=== PATIENT | male | born 1985 | race Caucasian/White ===

== ENCOUNTER 2019-12-06 07:03 | Emergency (ER) | payer SELFPAY ==
[2019-12-06 07:12] VITALS: BP 170/96; PULSE 86; RESP 16; TEMP 36.6; O2SAT 97; BMI 43.3
--- NOTE | 2019-12-06 07:28 | ED_ITS ---
HPI - General Adult General: Chief complaint: General Medical Stated complaint: MUCUS IN THROAT Time Seen by Provider: 12/06/19 07:06 History of Present Illness: HPI narrative: Patient comes in here today saying that he is having a hard time clearing his throat from the mucus that comes up that he coughs. Has complained about almost like bronchospasms. Has had a lot of sinus drainage. This is been going on 3 to 4 weeks. Has been to [facility] urgent care on the weekends for 3 straight weekends. Has been treated with antibiotics inhaler steroids now Tessalon Perles. Patient denies any fever chest pain shortness of breath headaches. MD complaint: drainage Onset (ago): week(s) Relieving factors: other (Tessalon Perles have helped some with the cough) Associated symptoms: Reports cough; Deny chest pain, dyspnea, fevers/chills, headache(s), rash, short of breath or vomiting Treatments prior to arrival: other Review of Systems Const: Denies: fever, chills or body aches Eyes: Denies: change in vision or blurry vision ENMT: Reports: nasal discharge and facial/sinus pain; Denies: throat pain or nasal congestion Card: Denies: chest pain Resp: Reports: productive cough and chest congestion; Denies: shortness of breath, non-productive cough, wheezing or coughing up blood GI: Denies: vomiting : Denies: difficulty urinating Musc: Denies: extremity pain Skin/Breast: Denies: rash Neuro: Denies: headache Psych: Denies: anxiety or depression Leoncio/Lymph: Denies: easy bruising PFSH ED PFSH: Statuses (acute, chronic, etc) shown below reflect problem list status as previously entered and may not be historically accurate Social History Smoking and tobacco status: former smoker Physical Exam Const: COMMON NORMALS: no apparent distress, average body habitus and oriented x3 HENMT: COMMON NORMALS: normocephalic HEAD & SCALP: normal to inspection and normocephalic FACE & SINUS: normal facial exam Eye: COMMON NORMALS: conjunctivae normal GENERAL EYE: normal appearance of both eyes CONJUNCTIVA: Yes conjunctivae normal Neck/C-Spine: COMMON NORMALS: no JVD Chest: COMMONS NORMALS: inspection of chest normal Resp: COMMON NORMALS: normal respiratory effort and clear to auscultation bilaterally AUSCULTATION: clear to auscultation bilaterally Cardio: COMMON NORMALS: no JVD, regular rate and regular rhythm RATE: regular rate RHYTHM: regular rhythm GI: COMMON NORMALS: normal to inspection, nondistended, normoactive bowel sounds Extremity: COMMON NORMALS: normal to inspection and full ROM Neuro: COMMON NORMALS: oriented x3 Course Vital Signs: Vital signs: Vital Signs Temperature 98 F 12/06/19 07:12 Pulse Rate 86 12/06/19 07:12 Respiratory Rate 16 12/06/19 07:12 Blood Pressure 170/96 12/06/19 07:12 Pulse Oximetry 97 12/06/19 07:12 Coding Level of Care Code ED Child Care Associate for Jai Dempsey
--- NOTE | 2019-12-06 07:28 | XR_ITS ---
WS: [id number] CHEST XRAY TECHNIQUE: Portable chest. CLINICAL INFORMATION: admission COMPARISON: FINDINGS: Heart: Normal cardiac silhouette. Lungs: Lungs are clear. No consolidation or pleural effusion. Bones: Normal visualized bony structures. XR/XR chest 1V portable [id number] IMPRESSION: Normal chest
--- NOTE | 2019-12-06 07:43 | PC.NURSE ---
portable xray at bedside
== END 2019-12-06 07:46 | disposition home or self-care (01) ==
PROVIDERS: Emergency Provider Nurse Practitioner Family; Family Provider Family Medicine; PCP Family Medicine
DX: R05 Cough (principal); R09.82 Postnasal drip; R51 Headache; R09.89 Other specified symptoms and signs involving the circulatory and respiratory systems; Z87.891 Personal history of nicotine dependence
CPT/HCPCS: 71045; 99281; 99282

== ENCOUNTER 2019-12-12 11:07 | Outpatient (CLI) | payer OTHER, SELFPAY ==
--- NOTE | 2019-12-12 | XR_ITS ---
WS: [id number] CHEST 2 VIEWS HISTORY: CHRONIC COUGH COMPARISON: 12/06/2019 Lungs: Very slight elevation of the RIGHT hemidiaphragm is stable. No mass or pneumonia. No pleural e ffusion or pneumothorax. Cardiac size: Normal. Mediastinum/Aorta: Normal mediastinum. Bones: Normal. XR/XR chest 2V* [id number] IMPRESSION: Stable chest with no acute cardiopulmonary disease.
== END 2019-12-12 11:08 | disposition home or self-care (01) ==
LOC: RADOUTREAD 11:15
PROVIDERS: Family Provider Family Medicine; PCP Family Medicine; Visit Provider Nurse Practitioner Family
DX: Z76.89 Persons encountering health services in other specified circumstances (principal)

== ENCOUNTER 2020-02-22 10:17 | Emergency (ER) | payer OTHER, SELFPAY ==
[2020-02-22 10:21] VITALS: BP 153/92; PULSE 86; RESP 18; O2SAT 94; BMI 40.6
--- NOTE | 2020-02-22 10:35 | XR_ITS ---
WS: [id number] CHEST XRAY TECHNIQUE: Portable chest. CLINICAL INFORMATION: cough/congestion COMPARISON: December 12, 2019 FINDINGS: Heart: Normal cardiac silhouette. Lungs: Lungs are clear. No consolidation or pleural effusion. Bones: Normal visualized bony structures. XR/XR chest 1V portable [id number] IMPRESSION: Normal chest
--- NOTE | 2020-02-22 10:35 | ECG_ITS ---
Measurements Intervals [place] Rate: 77 P: 16 SC: 126 QRS: 42 QRSD: 103 T: 55 QT: 351 QTc: 397 SINUS RHYTHM Compared to ECG 05/12/2015 18:22:11 No significant changes Electronically Signed On 02-22-2020 18:13:59 CDT by Radha Ramsay M.D. [id number]
--- NOTE | 2020-02-22 10:36 | W.ED.CHESTPA ---
HPI - Chest Pain General: Chief Complaint: Chest Pain Stated Complaint: CHEST PAINS 3DAYS, SOB Time Seen by Provider: 02/22/20 10:19 Source: patient Mode of arrival: ambulatory Limitations: no limitations History of Present Illness: HPI narrative: Patient is a 34-year-old male who presents to ED today with complaints of intermittent right-sided chest pains x 3 days. He states pain is only present with deep inhalation. He cannot find any other worsening factors to his discomfort. Patient has been seen 2-3x since December for complaints of cough/congestion. He has been prescribed albuterol, steroids, Z-Silas, and Tessalon Perles. Patient states his cough is improving. He has not been running fevers. He currently does not complain of any shortness of breath or difficulty breathing. He has not noticed any exercise intolerance. He currently does not any cardiac history. MD complaint: chest pain Onset (ago): day(s) Timing of current episode: episodic Pain location: right chest Exacerbating factors: inspiration Associated symptoms: Reports no associated symptoms; Deny dyspnea, fever(s), palpitations or syncope Review of Systems Const: Denies: fever, chills, body aches, fatigue or malaise Eyes: Denies: change in vision, blurry vision or photophobia ENMT: Denies: throat pain, enlarged tonsils or painful swallowing Card: Reports: chest pain; Denies: palpitations, irregular heart rhythm, edema, swelling of feet/ankles, lightheadedness, syncope, pre-syncope, shortness of breath on exertion, shortness of breath when lying down or leg pain with exertion Resp: Denies: shortness of breath, productive cough, non-productive cough, pain on inspiration, coughing up blood or chest congestion Musc: Denies: neck pain or back pain Skin/Breast: Denies: rash Neuro: Denies: headache, numbness in extremities, weakness in extremities or changes in sensation PFSH ED PFSH: Social History Smoking and tobacco status: former smoker Physical Exam Const: COMMON NORMALS: no apparent distress, oriented x3, no limitations and alert NUTRITIONAL APPEARANCE: obese HENMT: COMMON NORMALS: normocephalic, head/scalp atraumatic, hearing grossly normal bilaterally, external ears normal, EAC's normal, TM's normal bilaterally, external nose normal, nasal mucous membranes and turbinates normal, moist oral mucous membranes and oropharynx normal HEAD & SCALP: normal to inspection, normocephalic and atraumatic FACE & SINUS: normal facial exam and sinuses nontender NOSE: external nose normal and nasal mucous membranes and turbinates normal EXTERNAL EAR: Yes external ears normal EXTERNAL AUDITORY CANAL: EAC's normal TYMPANIC MEMBRANE: TM's normal bilaterally THROAT: posterior oropharynx normal, tonsils normal and uvula midline Eye: COMMON NORMALS: PERRL, EOMs intact bilaterally and conjunctivae normal CONJUNCTIVA: Yes conjunctivae normal PUPIL: Yes PERRL Neck/C-Spine: COMMON NORMALS: no lymphadenopathy Chest: COMMONS NORMALS: inspection of chest normal and palpation of chest normal Resp: COMMON NORMALS: normal respiratory effort and clear to auscultation bilaterally AUSCULTATION: clear to auscultation bilaterally Cardio: COMMON NORMALS: regular rate and regular rhythm RATE: regular rate RHYTHM: regular rhythm Neuro: COMMON NORMALS: oriented x3 SENSORIUM/ORIENTATION: Yes alert Skin: COMMON NORMALS: no rashes or lesions noted GENERAL SKIN EXAM: no rashes or lesions noted Course Vital Signs: Vital signs: Vital Signs Temperature 98.3 F 02/22/20 10:37 Pulse Rate 82 02/22/20 10:37 Respiratory Rate 18 02/22/20 10:37 Blood Pressure 129/79 02/22/20 10:37 Pulse Oximetry 97 02/22/20 10:37 MDM - Chest Pain MDM Narrative: Medical decision making narrative: Patient's work-up here looks good. He has a normal CXR. EKG shows normal sinus rhythm. Blood work including troponin is negative. Recommend he follow-up with PCP in 3 to 5 days for continued pain. Return to ED precautions given. Lab Data: Labs: Lab Results 02/22/20 02/22/20 02/22/20 Range/Units 10:35 10:35 10:35 WBC 8.7 (4.0-10.0) 10^3/ uL RBC 5.43 H (4.1-5.3) 10^6/u L Hgb 15.6 (11.7-16.6) g/dL Hct 46.2 (42.0-52.0) % MCV 85.1 (80-94) fL MCH 28.7 (28.0-34.0) pg MCHC 33.8 (30.0-36.0) g/dL RDW 12.9 (12.1-15.1) % Plt Count 265 (130-400) 10^3/c mm MPV 8.7 (7.4-10.4) fL Neut % (Auto) 78.4 % Lymph % (Auto) 16.4 % [place] % (Auto) 3.6 % Eos % (Auto) 0.1 % Baso % (Auto) 0.7 % Neut # (Auto) 6.8 (1.8-7.7) 10^3/u L Lymph # (Auto) 1.4 (0.8-4.8) 10^3/u L [place] # (Auto) 0.3 (0.2-0.9) 10^3/u L Eos # (Auto) 0.0 (0.0-0.8) 10^3/u L Baso # (Auto) 0.1 (0.0-0.1) 10^3/u L Nucleated RBC % (a uto) 0 % Nucleated RBCs # 0.0 /100WBC Sodium 138 (136-145) mmol/L Potassium 4.5 (3.5-5.1) mmol/L Chloride 102 (98-107) mmol/L Carbon Dioxide 23 (22-29) mmol/L Anion Gap 17.5 (5-19) BUN 10 (6-20) mg/dL Creatinine 0.8 (0.7-1.2) mg/dL GFR Calculation 109.4 (90-130) mL/min Glucose 123 H (65-115) mg/dL Calculated Osmolal ity 283 L (285-295) mOsm/k g Calcium 9.5 (8.5-10.5) mg/dL Total Bilirubin 0.4 (0.15-1.2) mg/dL AST 18 (0-40) U/L ALT 28 (0-41) U/L Alkaline Phosphata se 79 (40-130) IU/L Troponin T Gen 5 n g/L 7 (0-15) ng/mL Total Protein 7.9 (6.6-8.7) g/dL Albumin 4.5 (3.5-5.2) g/dL Globulin 3.4 (1.3-4.6) g/dL Imaging Data^: CXR: Radiologist's impression: [address] [address] XRay Report Signed Patient: Andrew Finn Unit #: [id number] : [id number] Age/Sex: 34 / M ADM Date: 02/22/20 Loc: ER Room/Bed: Attending Dr: Ordering Provider/Ordering MD: Alexus Peralta Date of Service: 02/22/20 Procedure(s): XR chest 1V portable [id number] Accession Number(s): [id number] Report Number: [id number] WS: [id number] CHEST XRAY TECHNIQUE: Portable chest. CLINICAL INFORMATION: cough/congestion COMPARISON: December 12, 2019 FINDINGS: Heart: Normal cardiac silhouette. Lungs: Lungs are clear. No consolidation or pleural effusion. Bones: Normal visualized bony structures. XR/XR chest 1V portable [id number] IMPRESSION: Normal chest Dictated By: Tal Carvalho MD Signed By: Tal Carvalho MD Signed Date/Time: 02/22/201106 DD/ 1106 Discharge Plan Discharge Patient Disposition: Home, Self-Care Clinical Impression: Right-sided chest pain Condition: Stable Prescriptions: No Action benzonatate [Tessalon Perles] 100 mg capsule 100 mg PO TID 15 Days Qty: 45 RF: 1 Mucinex D Maximum Strength 120-1,200 mg tablet extended release 12 hr 1 tab PO BID PRN (Reason: cold symptoms) Qty: 20 RF: 0 Discharge Orders: Discharge Order (Routine); Ordered 02/22/20 Ordered By: Alexus Peralta Referrals: Shay Fairchild MD [Primary Care Provider] - Discharge Diet: Usual diet Discharge Activity: Increase activity as tolerated Activity Restrictions/Additional Instructions: You may follow up with primary care in 3-5 days for persistent pain/symptoms. Can return to ED for any worsening symptoms, pain, or other concerns you may have. Coding Level of Care Code ED Spinning Machine Operator for Jai Dempsey
[2020-02-22 10:37] VITALS: BP 129/79; PULSE 82; RESP 18; TEMP 36.8; O2SAT 97
[2020-02-22 10:44] LABS: Basophils # 0.1 10^3/uL (0.0-0.1); Basophils % 0.7 %; Eosinophils % 0.1 %; Hematocrit 46.2 % (42.0-52.0); Hemoglobin 15.6 g/dL (11.7-16.6); Lymphocytes # 1.4 10^3/uL (0.8-4.8); Lymphocytes % 16.4 %; Mean Corpuscular HGB Conc 33.8 g/dL (30.0-36.0); Mean Corpuscular Hemoglobin 28.7 pg (28.0-34.0); Mean Corpuscular Volume 85.1 fL (80-94); Mean Platelet Volume 8.7 fL (7.4-10.4); Monocytes # 0.3 10^3/uL (0.2-0.9); Monocytes % 3.6 %; Neutrophils # 6.8 10^3/uL (1.8-7.7); Neutrophils % 78.4 %; Nucleated Red Blood Cells % 0 %; Platelet Count 265 10^3/cmm (130-400); Red Blood Count 5.43 10^6/uL (4.1-5.3); Red Cell Distribution Width 12.9 % (12.1-15.1); White Blood Count 8.7 10^3/uL (4.0-10.0)
[2020-02-22 11:04] LABS: Alanine Aminotransferase 28 U/L (0-41); Albumin Level 4.5 g/dL (3.5-5.2); Alkaline Phosphatase 79 IU/L (40-130); Anion Gap 17.5 (5-19); Aspartate Amino Transferase 18 U/L (0-40); Blood Urea Nitrogen 10 mg/dL (6-20); Calcium 9.5 mg/dL (8.5-10.5); Carbon Dioxide 23 mmol/L (22-29); Chloride 102 mmol/L (98-107); Globulin 3.4 g/dL (1.3-4.6); Glomerular Filtration Rate 109.4 mL/min (90-130); Glucose 123 mg/dL (65-115); Osmolality Calculated 283 mOsm/kg (285-295); Potassium 4.5 mmol/L (3.5-5.1); Sodium 138 mmol/L (136-145); Total Bilirubin 0.4 mg/dL (0.15-1.2); Total Protein 7.9 g/dL (6.6-8.7)
[2020-02-22 11:05] LABS: Troponin T (5th) Once 7 ng/mL (0-15)
[2020-02-22 11:53] VITALS: BP 122/62; PULSE 78; RESP 18
== END 2020-02-22 11:59 | disposition home or self-care (01) ==
PROVIDERS: Emergency Provider Physician Assistant; Family Provider Family Medicine; PCP Family Medicine
DX: R07.89 Other chest pain (principal); Z87.891 Personal history of nicotine dependence
CPT/HCPCS: 12345; 71045; 80053; 84484; 85025; 93005; 99282; 99283

== ENCOUNTER → 2020-07-23 10:31 | Outpatient (BNVA) | payer OTHER, SELFPAY | PROVIDERS: Family Provider Family Medicine; PCP Family Medicine; Visit Provider Nurse Practitioner Family | DX: Z20.828 Contact with and (suspected) exposure to other viral communicable diseases (principal); R05 Cough | CPT/HCPCS: 87071; 87635; 87880 ==

== ENCOUNTER → 2021-10-15 11:04 | Outpatient (BNVA) | payer SELFPAY | PROVIDERS: Family Provider Family Medicine; PCP Family Medicine; Visit Provider Family Medicine | DX: R79.89 Other specified abnormal findings of blood chemistry (principal) | CPT/HCPCS: 84403 ==

== ENCOUNTER 2023-05-26 09:52 | Emergency (ER) | payer OTHER, SELFPAY ==
[2023-05-26 10:06] VITALS: BMI 29.7
[2023-05-26 10:08] VITALS: BP 102/70; PULSE 72; RESP 16; TEMP 36.7; O2SAT 98
--- NOTE | 2023-05-26 12:37 | ED_ITS ---
HPI - Back Pain/Injury General: Chief Complaint: Back Pain/Injury Stated Complaint: Lower Back Pain Time Seen by Provider: 05/26/23 12:20 History of Present Illness: Patient is a 37-year-old male comes to the ED with low back pain. Symptoms started yesterday. Patient says he bent over to grab something and felt a sharp pain in his lower back that radiated up to the middle of his back. He now has 9 out of 10 pain in his lumbar spine. He has some numbness/tingling sensation in his lower extremities bilaterally. Denies any bladder or bowel incontinence, pelvic anesthesia or any difficulty walking. Associated symptoms: Deny abdominal pain, chills, dysuria, fatigue, fever(s), hematuria, nausea or vomiting Review of Systems Const: Denies: fever(s), chills or fatigue Eyes: Denies: change in vision or eye discomfort ENMT: Denies: throat pain, odynophagia, nasal discharge or nasal congestion Card: Denies: chest pain, palpitations, edema, swelling of feet/ankles, dyspnea on exertion or orthopnea Resp: Denies: dyspnea, productive cough or non-productive cough GI: Denies: abdominal pain, nausea, vomiting, diarrhea, constipation or hematochezia : Denies: flank pain, difficulty urinating, dysuria or hematuria Musc: Reports: back pain; Denies: neck pain or extremity swelling Skin/Breast: Denies: rash or new lesions Neuro: Denies: headache(s), numbness in extremities or weakness in extremities PFSH ED PFSH: Medical History Generalized anxiety disorder History of pyloric stenosis Hypertension Morbid obesity Sleep apnea Surgical History History of wisdom tooth extraction Family History Other Cancer Hypertension Stroke Denies family history of Diabetes Anesthesia complication Bleeding disorder Social History Smoking and tobacco status: former smoker Second hand smoke exposure: No Alcohol intake: never Substance/Drug Use: never Adopted: No Caregiver/support person: Yes Lives independently: Yes Household members: spouse Housing: House Marital status: service: No Current occupational status: employed Current occupational exposures/hazards: No Pets and animals: No Leisure activites: sports Sexually active: Yes Do you think of yourself as: Straight/Heterosexual Current gender identity: Male Elena/Restorationism: Spiritism Special elena needs: No Physical Exam Narrative: EXAM NARRATIVE: Appears nontoxic in no acute distress or pain. He is able to ambulate without any difficulty. Const: COMMON NORMALS: no acute distress, patient oriented x3 and alert HENMT: COMMON NORMALS: normocephalic HEAD & SCALP: normocephalic MOUTH: Normal oral and palatal mucosa present THROAT: posterior oropharynx normal and uvula midline Neck/C-Spine: COMMON NORMALS: supple GENERAL: Yes normal visual inspection Resp: COMMON NORMALS: normal respiratory effort, No retractions, No use of accessory muscles and clear to auscultation bilaterally AUSCULTATION: clear to auscultation bilaterally Cardio: COMMON NORMALS: regular rate, regular rhythm, S1 normal heart sound present, S2 normal heart sound present, No gallops present (Cardio), No clicks present (Cardio), No murmurs present (Cardio) and Peripheral pulses 2+ throughout RATE: regular rate RHYTHM: regular rhythm HEART SOUNDS: S1 normal heart sound present and S2 normal heart sound present PERIPHERAL PULSES: Peripheral pulses 2+ throughout GI: COMMON NORMALS: Normal to inspection, nondistended, normoactive bowel sounds present, Soft to palpation, non-tender and no masses PALPATION: Yes Soft to palpation : COMMON NORMALS: Yes no CVA tenderness BLADDER/KIDNEY EXAM: Yes no CVA tenderness Back/Pelvis: COMMON NORMALS: no CVA tenderness LUMBAR SPINE/LOWER BACK: Yes pain with ROM, No lumbar spinal tenderness and Yes paraspinal muscle tenderness Lumbar paraspinal muscle tenderness: bilateral Extremity: COMMON NORMALS: normal to inspection Neuro: COMMON NORMALS: patient oriented x3 SENSORIUM/ORIENTATION: Yes alert GAIT: Yes Normal gait present Skin: GENERAL SKIN EXAM: dry skin Course Vital Signs: Vital signs: Vital Signs Temperature 98.0 F 05/26/23 10:08 Pulse Rate 72 05/26/23 10:08 Respiratory Rate 16 05/26/23 10:08 Blood Pressure 102/70 05/26/23 10:08 Pulse Oximetry 98 05/26/23 10:08 Oxygen Delivery Me thod Room Air 05/26/23 10:08 MDM - Back Pain/Injury Medical Decision Making Patient is a 37-year-old male comes to the ED with low back pain. Symptoms sta rted yesterday. Patient says he bent over to grab something and felt a sharp pain in his lower back that radiated up to the middle of his back. He now has 9 out of 10 pain in his lumbar spine. He has some numbness/tingling sensation in his lower extremities bilaterally. Denies any bladder or bowel incontinence, pelvic anesthesia or any difficulty walking. Vitals are stable. Patient appears nontoxic in no acute distress or pain. He is able to ambulate without any difficulty. He has some lumbar paraspinal muscle tenderness bilaterally but no lumbar spinal tenderness. Pain with range of motion of the lumbar spine. Patient was given a dose of Toradol, Decadron and muscle relaxer here in the ED. He was stable for discharge home and diagnosed with strain of lumbar region and was discharged home with a prescription for an NSAID, muscle relaxer and steroid. Told to follow-up with PCP in the next week for reevaluation. Return to ED precautions given. Patient understood and agreed with plan. Discharge Plan Discharge Patient Disposition: Home Clinical Impression: Strain of lumbar region Condition: Stable Prescriptions: New ibuprofen 800 mg tablet 800 mg PO Q8H PRN (Reason: pain) Qty: 20 0RF methocarbamol 750 mg tablet 750 mg PO Q8H PRN (Reason: muscle spasms and pain) Qty: 20 0RF methylprednisolone 4 mg tablets,dose pack See Rx Instructions .ROUTE .COMPLEX Qty: 21 0RF Rx Instructions: orally per package directions No Action dextromethorphan-guaifenesin [Mucinex DM] 60-1,200 mg tablet extended release 12 hr 1 tab PO Q12H Qty: 10 0RF meclizine 25 mg tablet 25 mg PO BID PRN (Reason: dizziness) Qty: 60 0RF fluticasone propionate [Flonase Allergy Relief] 50 mcg/actuation spray,suspension 1 spray intranasal DAILY Qty: 16 5RF Rx Instructions: administer into each nostril alprazolam 0.5 mg tablet 0.5 mg PO BID PRN (Reason: anxiety) Qty: 30 3RF penicillin V potassium 500 mg tablet 500 mg PO TID Qty: 30 0RF Discharge Orders: Discharge ED (Routine); Ordered 05/26/23 Ordered By: Shakeel Snell Referrals: Shay Fairchild MD [Primary Care Provider] - Discharge Diet: Regular Discharge Activity: Increase activity as tolerated Patient Instructions: Low Back Strain (ED) Activity Restrictions/Additional Instructions: Follow-up with medical provider as directed in the next 5 to 7 days for reevaluation.. Take medications as prescribed. Return to the ER or your medical provider if condition worsens. Please read and understand discharge instructions. Thank you for choosing [facility] for your healthcare needs today. Please realize this is an emergency room and that we are providing you with a medical screening exam and this may not be complete and all inclusive of all the testing and or work up that you may need to determine your ailment or severity of your illness. It is very important that you follow up as instructed or that you return to the Emergency Department should you have concerns or if your condition changes or worsens in any way. Stand Alone Forms: Work/School Release Coding Level of Care Code ED Spring Crater for Jai Dempsey
[2023-05-26] MEDS: dexamethasone 10 mg/mL INJ IM (12:57)
[2023-05-26] MEDS: ketorolac 60 mg/2 mL INJ IM (12:59)
[2023-05-26] MEDS: orphenadrine 30 mg/mL Inj 2 mL 60 MG IM (13:01)
== END 2023-05-26 13:37 | disposition home or self-care (01) ==
PROVIDERS: Emergency Provider Physician Assistant; PCP Family Medicine
DX: S39.012A Strain of muscle, fascia and tendon of lower back, initial encounter (principal); I10 Essential (primary) hypertension; E66.01 Morbid (severe) obesity due to excess calories; Z68.29 Body mass index [BMI] 29.0-29.9, adult; Z79.899 Other long term (current) drug therapy; Z87.891 Personal history of nicotine dependence; X50.0XXA Overexertion from strenuous movement or load, initial encounter
CPT/HCPCS: 96372; 99284; J1100; J1885; J2360

== ENCOUNTER → 2023-07-20 08:18 | Outpatient (BNVA) | payer OTHER, SELFPAY | PROVIDERS: PCP Family Medicine; Visit Provider Nurse Practitioner Family | DX: R51.9 Headache, unspecified (principal); J06.9 Acute upper respiratory infection, unspecified | CPT/HCPCS: 87426 ==

== ENCOUNTER 2024-04-10 10:43 | Outpatient (CLI) | payer OTHER, SELFPAY ==
--- NOTE | 2024-04-10 10:47 | XRR_ITS ---
PROCEDURE INFORMATION: Exam: XR Lumbosacral Spine Exam date and time: 04/10/2024 11:16 AM Age: 38 years old Clinical indication: Low back pain; Additional info: Continued lumbar sacral pain w adl's TECHNIQUE: Imaging protocol: Radiologic exam of the lumbosacral spine. Views: 2 or 3 views. COMPARISON: No relevant prior studies available. FINDINGS: Bones/joints: There are 5 [id number] lumbar-type vertebral bodies. Lumbar vertebral body heights and intervertebral disc space heights are well preserved. There is no acute fracture or subluxation identified. No advanced degenerative changes are noted. Sacroiliac joints are symmetric. Soft tissues: No significant asymmetry of the psoas muscle margins is identified. XR/XR lumbar spine 2-3V* [id number] IMPRESSION: 1. Essentially unremarkable lumbar spine study
== END 2024-04-10 10:44 | disposition home or self-care (01) ==
LOC: RAD 10:47
PROVIDERS: PCP Family Medicine; Visit Provider Family Medicine
DX: M54.50 Low back pain, unspecified (principal)
CPT/HCPCS: 72100

== ENCOUNTER 2024-04-27 08:16 | Outpatient (RCR) | payer OTHER, SELFPAY | END 2024-04-30 23:59 | disposition home or self-care (01) | LOC: SPT 08:16 | PROVIDERS: PCP Family Medicine; Visit Provider Family Medicine | DX: M54.50 Low back pain, unspecified (principal); G89.29 Other chronic pain | CPT/HCPCS: 97161 ==

== ENCOUNTER 2024-05-01 06:00 | Outpatient (RCR) | payer OTHER, SELFPAY | END 2024-05-31 23:59 | disposition home or self-care (01) | LOC: SPT 06:00 | PROVIDERS: PCP Family Medicine; Visit Provider Family Medicine | DX: M54.50 Low back pain, unspecified (principal); G89.29 Other chronic pain | CPT/HCPCS: 97110 ==

== ENCOUNTER → 2025-10-15 14:54 | Outpatient (BNVA) | payer OTHER, SELFPAY | PROVIDERS: PCP Family Medicine; Visit Provider Family Medicine | DX: F41.1 Generalized anxiety disorder (principal) | CPT/HCPCS: 80053; 80061; 85025 ==